=== PATIENT | male | born 1990 | race Caucasian/White ===

== ENCOUNTER 2019-11-24 10:29 | Emergency (ER) | payer SELFPAY | END 2019-11-24 11:20 | disposition home or self-care (01) | LOC: BURERS 10:29 | DX: J11.1 Influenza due to unidentified influenza virus with other respiratory manifestations (principal); F90.9 Attention-deficit hyperactivity disorder, unspecified type | CPT/HCPCS: 99283 ==

== ENCOUNTER 2020-04-22 18:11 | Emergency (ER) | payer OTHER, SELFPAY | END 2020-04-22 18:40 | disposition home or self-care (01) | LOC: BURERS 18:11 | DX: S01.111A Laceration without foreign body of right eyelid and periocular area, initial encounter (principal); F90.9 Attention-deficit hyperactivity disorder, unspecified type; W22.8XXA Striking against or struck by other objects, initial encounter | CPT/HCPCS: 12011 ==

== ENCOUNTER 2024-11-08 18:43 | Emergency (ER) | payer BC, OTHER | END 2024-11-08 20:21 | disposition home or self-care (01) | LOC: BURERS 18:43 | DX: R20.2 Paresthesia of skin (principal); R20.0 Anesthesia of skin | CPT/HCPCS: 70450 ==